=== PATIENT | female | born 1935 | race Two or more races ===

== ENCOUNTER 2019-06-05 23:11 | Inpatient (IN) | payer MEDICAID, OTHER ==
[~2019-06-05] VITALS: Ht 157.5 cm; Wt 53.1 kg
[2019-06-05] MEDS ORDERED: ACETAMINOPHEN 500 MG TAB PO ONE (23:30)
[2019-06-05] MEDS ORDERED: ACETAMINOPHEN 325 MG TAB PO ONE ×2 (23:30)
[2019-06-05 23:47] LABS: Hematocrit 32.8 % (36.0-46.0); Hemoglobin 10.8 g/dL (12.2-16.2); Mean Corpuscular Hemoglobin 30.2 pg (28.0-32.0); Mean Corpuscular Hgb Conc. 33.1 g/dL (32.0-36.0); Mean Corpuscular Volume 91.2 fL (80.0-100.0); Platelet Count (auto) 147 10^3/uL (140-450); Red Blood Cells 3.59 10^6/uL (4.0-5.20)
[2019-06-05 23:55] LABS: Basophils % (manual) 0 (0.0-2.0); Blast Cells 0; Myelocytes % 0; Promyelocytes % 0; Reactive Lymphocytes 0
[2019-06-06] VITALS (8 sets, daily range): BP systolic 88–123; BP diastolic 31–92
[2019-06-06 00:05] LABS: Albumin 2.7 g/dL (3.4-5.0); Anion Gap 11 (5-15); BUN/Creatinine Ratio 12.3; Blood Urea Nitrogen 18 mg/dL (7-18); Calcium 8.5 mg/dL (8.5-10.1); Carbon Dioxide 20 mmol/L (21-32); Chloride 108 mmol/L (98-107); GFR African American 44 mL/min; GFR Non-African American 36 mL/min; Glucose 146 mg/dL (74-106); Potassium 3.3 mmol/L (3.5-5.1); Sodium 139 mmol/L (136-145)
[2019-06-06 00:08] LABS: Urine Amorphous Crystal FEW /hpf (None Seen); Urine Bacteria MOD /hpf (None Seen); Urine Blood 1+ /uL (Negative); Urine Mucus FEW (None Seen); Urine Specific Gravity 1.014 (1.001-1.035); Urine WBC 51 /hpf (0 - 5); Urine WBC Clumps PRESENT /hpf (None Seen)
[2019-06-06 00:14] LABS: Alanine Aminotransferase 23 U/L (13-56); Alkaline Phosphatase 76 U/L (45-117); Aspartate Aminotransferase 18 U/L (15-37); Bilirubin, Total 0.4 mg/dL (0.2-1.0); Total Protein 7.2 g/dL (6.4-8.2)
[2019-06-06] MEDS ORDERED: SODIUM CHLORIDE 0.9% 1,000 ML IV ONE (00:45)
[2019-06-06 01:55] LABS: Band Neutrophils % (manual) 12; Eosinophils % (manual) 1 (0-7); Lymphocytes % (manual) 6 (10.0-50.0); Metamyelocytes % 2; Monocytes % (manual) 11 (0-12)
[2019-06-06] MEDS ORDERED: levoFLOXacin 750MG 150 ML IV ONE (02:30)
[2019-06-06] MEDS ORDERED: SODIUM CHLORIDE 0.9% 1,000 ML IV SCH (02:38)
[2019-06-06] MEDS ORDERED: POTASSIUM CHL 20 Meq TABLET PO ONE ×2 (02:45→05:03)
[2019-06-06] MEDS ORDERED: ONDANSETRON HCL 4 MG/2 ML VIAL IV PRN (02:45)
[2019-06-06] MEDS ORDERED: TEMAZEPAM 15 MG CAP PO PRN (02:45)
[2019-06-06 03:09] LABS: Lactic Acid w/Reflex 3.6 mmol/L (0.4-2.0); Magnesium 1.8 mg/dL (1.6-2.6)
[2019-06-06 03:18] LABS: CRP High Sensitivity 8.1 mg/dL (< 0.3)
--- NOTE | 2019-06-06 03:40 | NUR ---
Telemetry admit from [facility] admitted to Telemetry unit. Patient oriented to SADIE MILNER, primary RN, unit, room, bed, and unit policies regarding patient care and visiting hours. Patient now on continuous telemetry monitoring, tele box #1 and telemetry reading on arrival to unit is sinus rhythm, heart rate 65. Patient placed on bedside oxygen 2L NC, SPO2: 98%, patient denies shortness of breath at this time. Patient weighed by bedscale and encouraged to call as needed. All questions and concerns addressed, patient verbalized understanding. No signs/symptoms of distress noted or verbalized at this time. Bed is locked in lowest position, side rails x 2 are up, call light is within reach, and bed alarm is on.
--- NOTE | 2019-06-06 03:50 | NUR ---
Next of Kin Patient is alert and oriented x3. Patient reoriented to person, place, time, and situation, will reorient patient as needed and throughout the shift. Patient states that she wants her daughter, Sariah Buitrago to be her next of kin but patient does not recall daughter's phone number at this time. This RN was unable to find contact information in medical chart or hard chart.
--- NOTE | 2019-06-06 04:00 | NUR ---
Home Medications Reconciled and collected home medications. Medications were placed in patient's home medication envelope and were placed in the [facility] room, per covid-19 protocol. A copy of home medications envelope given to patient and placed in hard chart.
[2019-06-06] MEDS ORDERED: ALEN1TAB32 PO (04:38)
[2019-06-06] MEDS ORDERED: CALCTAB25 PO (04:38)
[2019-06-06] MEDS ORDERED: FURO20TA3 PO (04:38)
[2019-06-06] MEDS ORDERED: LABE100T4 PO (04:38)
[2019-06-06] MEDS ORDERED: AMLO5TAB15 PO (04:38)
[2019-06-06] MEDS ORDERED: [UNRECOGNIZED DRUG - CODE] PO (04:38)
[2019-06-06] MEDS ORDERED: ACET-1156 PO (04:38)
[2019-06-06] MEDS ORDERED: POTASSIUM CHL 20MEQ/100ML 0 ML IV ONE (05:01)
--- NOTE | 2019-06-06 05:40 | NUR ---
EKG Performed EKG performed and placed in hard chart.
[2019-06-06] MEDS ORDERED: ALBUTEROL SULF HFA 90MCG INH 200DOSE IN SCH (06:00)
--- NOTE | 2019-06-06 06:45 | NUR ---
Respiratory note: PT ASSESSED FOR MDI TX. HR 65, RR 18, POX 99% ON 2L NC, BS ARE CLEAR. NO SOB OR DISTRESS NOTED AT THIS TIME. PT STATES SHE DOES NOT TAKE MDI TX AT HOME AND DOESN'T NEED THEM. WILL CONTINUE TO MONITOR PT.
--- NOTE | 2019-06-06 07:30 | NUR ---
Opening Shift Note Assumed care of patient, awake and alert. No S/S of distress/SOB or pain. Bed in lowest and locked position with side rails up x2 and call light in reach. Instructed on POC and to call for assist PRN, will continue to monitor for changes Q1hr and PRN.
[2019-06-06] MEDS: PANTOPRAZOLE 40 MG TAB PO SCH (10:00)
[2019-06-06] MEDS: ENOXAPARIN SOD 30 MG/0.3 ML SYRINGE SC SCH (10:00)
[2019-06-06] MEDS: CHOLECALCIFEROL (VITD3) 1,000IU=25mCg TAB PO SCH (10:00)
[2019-06-06] MEDS: ZINC SULFATE 220mg CAP or TAB PO SCH (10:08)
[2019-06-06] MEDS: cefTRIAXone 1GM/50ML D5W 50 ML IV SCH (10:08)
[2019-06-06] MEDS: ACETAMINOPHEN 325 MG TAB PO PRN (10:08)
[2019-06-06] MEDS: AZITHROMYCIN 500MG/ 250ML 250 ML IV SCH (10:38)
[2019-06-06] MEDS ORDERED: ASCORBIC ACID 500 MG TAB PO ONE (11:30)
--- NOTE | 2019-06-06 12:00 | NUR ---
RECEIVED CALL. PATIENT COVID-19 TEST IS POSITIVE.
--- NOTE | 2019-06-06 12:30 | NUR ---
PATIENT TRANSFERRED TO ROOM 234 VIA WHEEL CHAIR. PATIENT ASSISTED BY STAFF AND PATIENT TRANSFERRED WITH ALL PERSONAL BELONGINGS. NO DISTRESS OR SOB AT THIS TIME.
--- NOTE | 2019-06-06 12:55 | NUR ---
RECEIVED CALL FROM [facility]. PER CARLOS BROWN, THE PATIENTS BLOOD CULTURES ARE POSITIVE WITH GRAM POSITIVE RODS.
--- NOTE | 2019-06-06 13:00 | NUR ---
PAGED DR. RODRIGUEZ. AWAITING CALL BACK.
--- NOTE | 2019-06-06 13:59 | NUR ---
Received Social Service Referral for pt that is listed as not having current insurance. Pt does have medi-donald. The medi-donald cards were brought to the ER when pt was brought in. Spoke with Elmo Acevedo who confirmed pt does have medi-donald. Pt lives with family and her daughter is her caregiver. There is also a grandson, a cousin, daughter and the daughter's . Pt normally is able to walk without any equipment. The daughter helps the pt with ADL's. The family states that pt will go home on discharge. Addendum: 06/06/19 at 1413 by DEEDEE ANDERSON Amended: Links added.
--- NOTE | 2019-06-06 14:45 | NUR ---
PAGED DR. RODRIGUEZ. AWAITING CALL BACK.
--- NOTE | 2019-06-06 14:55 | NUR ---
RECEIVED CALL BACK FROM DR. RODRIGUEZ. RN UPDATED DR. RODRIGUEZ ON THE PATIENTS BLOOD CULTURE AND COVID-19 RESULTS. MD AWARE AND NO NEW ORDERS RECEIVED AT THIS TIME.
--- NOTE | 2019-06-06 19:30 | NUR ---
Opening Shift Note Assumed care of patient, awake and alert x4. Patient denies pain or shortness of breath at this time. Instructed on plan of care and to call for assistance as needed, patient verbalized understanding. Incentive spirometer noted at the bedside. Educated patient on how and how often to use the incentive spirometer, patient verbalized understanding and returned demonstration, reinforcement on education needed. Patient was able to raise marker to 500ml, patient tolerated well. Bed is locked in lowest position, side rails x 2 are up, call light is within reach, and bed alarm is on.
[2019-06-06] MEDS: ASCORBIC ACID 500 MG TAB PO SCH (21:20)
[2019-06-07] VITALS: BP 114/49
[2019-06-07 04:20] VITALS: BP 101/52
--- NOTE | 2019-06-07 04:30 | NUR ---
Blood Draw Blood drawn as ordered by . Tubes sent to lab via bullet.
[2019-06-07 04:52] LABS: Mean Corpuscular Hemoglobin 30.6 pg (28.0-32.0); Mean Corpuscular Hgb Conc. 33.7 g/dL (32.0-36.0); Red Cell Distribution Width 14.9 % (11.8-14.3)
[2019-06-07 04:56] LABS: Hematocrit 28.3 % (36.0-46.0); Hemoglobin 9.5 g/dL (12.2-16.2); Mean Corpuscular Volume 90.8 fL (80.0-100.0); Platelet Count (auto) 91 10^3/uL (140-450); Red Blood Cells 3.12 10^6/uL (4.0-5.20)
[2019-06-07 05:18] LABS: Albumin 2.2 g/dL (3.4-5.0); Calcium 7.9 mg/dL (8.5-10.1); Potassium 3.7 mmol/L (3.5-5.1)
[2019-06-07 05:21] LABS: BUN/Creatinine Ratio 13.6; Bilirubin, Total 0.4 mg/dL (0.2-1.0); Total Protein 6.2 g/dL (6.4-8.2); White Blood Cell 1.9 10^3/uL (4.4-10.8)
--- NOTE | 2019-06-07 05:21 | NUR ---
Received Call From Lab Re: Critical Lab Value Received call from lab regarding critical lab value: WBC: 1.9. Will notify hospitalist.
[2019-06-07 05:22] LABS: Basophils % (manual) 0 (0.0-2.0); Blast Cells 0; Myelocytes % 0; Promyelocytes % 0; Reactive Lymphocytes 0
[2019-06-07] MEDS: ACETAMINOPHEN 325 MG TAB PO PRN (05:24)
--- NOTE | 2019-06-07 05:57 | NUR ---
Hospitalist Paged RE: Critical Lab Value Paged hospitalist regarding critical lab value: WBC 1.9. Awaiting call back.
[2019-06-07 05:58] LABS: Band Neutrophils % (manual) 11; Eosinophils % (manual) 2 (0-7); Lymphocytes % (manual) 41 (10.0-50.0); Metamyelocytes % 1; Monocytes % (manual) 34 (0-12)
--- NOTE | 2019-06-07 07:15 | NUR ---
Closing Shift Note Endorsed patient care to Jada LEBRON. Jada LEBRON made aware of patient's critical lab value: WBC 1.9 and that hospitalist was paged but has not returned the call.
--- NOTE | 2019-06-07 07:30 | NUR ---
Opening Shift Note Assumed care of patient, awake and alert. No S/S of distress/SOB or pain. Instructed on POC and to call for assist PRN, will continue to monitor for changes Q1hr and PRN. Fall precautions in place per safety protocol.
[2019-06-07 08:00] VITALS: BP 110/46
[2019-06-07] MEDS: PANTOPRAZOLE 40 MG TAB PO SCH (09:46)
[2019-06-07] MEDS: cefTRIAXone 1GM/50ML D5W 50 ML IV SCH (09:46)
[2019-06-07] MEDS: ASCORBIC ACID 500 MG TAB PO SCH ×2 (09:47→20:49)
[2019-06-07] MEDS: ZINC SULFATE 220mg CAP or TAB PO SCH (09:49)
[2019-06-07] MEDS: CHOLECALCIFEROL (VITD3) 1,000IU=25mCg TAB PO SCH (09:49)
[2019-06-07] MEDS: ENOXAPARIN SOD 30 MG/0.3 ML SYRINGE SC SCH (10:00)
[2019-06-07] MEDS: AZITHROMYCIN 500MG/ 250ML 250 ML IV SCH (10:41)
[2019-06-07 12:00] VITALS: BP 105/51
--- NOTE | 2019-06-07 14:00 | NUR ---
Hospitalist at bedside MD Aggarwal at bedside, aware of patient status, including low platelets and WBC. Per MD Aggarwal, he will make adjustments to medications and input new orders. Will cont to monitor patient.
--- NOTE | 2019-06-07 16:00 | NUR ---
IV insertion IV access obtained, via clean sterile technique by inserting 20 gauge catheter at right FA after 1 attempt. IV secured properly. No trauma to site. Patient tolerated well. Old IV, came off as it got tangled with patients O2 Tubing. No trauma to site noted.
[2019-06-07 17:00] VITALS: BP 123/58
--- NOTE | 2019-06-07 19:04 | NUR ---
Endorsed care to night RN Shefali. Patient resting in bed, no distress, sob or pain noted at this time.
--- NOTE | 2019-06-07 19:05 | NUR ---
Opening Shift Note Assumed care of patient, eyes closed, respirations even and unlabored, appears asleep. No S/S of distress/SOB or pain. Bed in lowest locked position, side rails up x2, call light within reach, bed alarm on. court recording monitor on patient with all leads and connections verified in the correct position. Instructed on POC and to call for assist PRN, will continue to monitor for changes Q1hr and PRN. Addendum: 06/07/19 at 2126 by LENORE SANABRIA RN RN ADDITION: COVID [address] Will use correct PPE throughout shift.
[2019-06-07 20:00] VITALS: BP 106/37
--- NOTE | 2019-06-07 21:00 | NUR ---
Temperature 99.2 Fahrenheit orally. Temperature of room lowered and blankets removed. Patient denies chills and other s/s fever. Will continue to monitor.
[2019-06-08] VITALS: BP 114/48
--- NOTE | 2019-06-08 06:30 | NUR ---
Unable to complete ordered morning lab draw, lab staff made aware and verbalized understanding. Will continue care.
--- NOTE | 2019-06-08 07:30 | NUR ---
Closing Note Patient lying in bed, eyes closed, respirations even and unlabored, appears asleep. No s/s of distress. Bed in lowest locked position, side rails up x2, call light within reach, bed alarm on. Care endorsed to dayshift RN.
--- NOTE | 2019-06-08 07:31 | NUR ---
Opening Shift Note Assumed care of patient, awake and alert. No S/S of distress/SOB or pain on room air. Instructed on POC and to call for assist PRN, will continue to monitor for changes Q1hr and PRN. Bed in low and locked position, rails up x2, no-slip socks on.
[2019-06-08 07:39] LABS: Hematocrit 29.6 % (36.0-46.0); Mean Corpuscular Hemoglobin 30.6 pg (28.0-32.0); Mean Corpuscular Hgb Conc. 33.8 g/dL (32.0-36.0); Mean Corpuscular Volume 90.4 fL (80.0-100.0); Platelet Count (auto) 111 10^3/uL (140-450); Red Blood Cells 3.27 10^6/uL (4.0-5.20); Red Cell Distribution Width 14.9 % (11.8-14.3); White Blood Cell 2.8 10^3/uL (4.4-10.8)
[2019-06-08 07:41] LABS: Basophils % (manual) 0 (0.0-2.0); Blast Cells 0; Promyelocytes % 0; Reactive Lymphocytes 0
[2019-06-08 07:55] LABS: BUN/Creatinine Ratio 12.2; Calcium 8.5 mg/dL (8.5-10.1); Potassium 3.8 mmol/L (3.5-5.1)
[2019-06-08] MEDS: ZINC SULFATE 220mg CAP or TAB PO SCH (08:55)
[2019-06-08] MEDS: cefTRIAXone 1GM/50ML D5W 50 ML IV SCH (08:55)
[2019-06-08] MEDS: PANTOPRAZOLE 40 MG TAB PO SCH (08:56)
[2019-06-08] MEDS: CHOLECALCIFEROL (VITD3) 1,000IU=25mCg TAB PO SCH (08:56)
[2019-06-08] MEDS: ASCORBIC ACID 500 MG TAB PO SCH ×2 (08:56→22:08)
[2019-06-08 09:00] VITALS: BP 120/53
[2019-06-08 09:04] LABS: Eosinophils % (manual) 6 (0-7); Lymphocytes % (manual) 31 (10.0-50.0); Metamyelocytes % 1; Monocytes % (manual) 25 (0-12); Myelocytes % 1
[2019-06-08 09:05] LABS: Band Neutrophils % (manual) 5
[2019-06-08] MEDS: AZITHROMYCIN 500MG/ 250ML 250 ML IV SCH (09:49)
--- NOTE | 2019-06-08 11:00 | NUR ---
POSITIVE BLOOD CULTURES IN BOTH BOTTLES, E.COLI. MD NOTIFIED, PATIENT ALREADY ON CEFTRIAXONE, NO NEW ORDERS AT THIS TIME.
[2019-06-08 12:30] VITALS: BP 128/59
--- NOTE | 2019-06-08 15:20 | NUR ---
MARIN REMOVAL/ BOWEL MOVEMENT NURSE NOTICED [employer] ON [employer]ISHER AND UPON ENTERING ROOM PATIENT WAS UNABLE TO CALL FOR ASSISTANCE AND STANDING AT BEDSIDE WITH A LOOSE BOWEL MOVEMENT ON LINEN AND ON FLOOR. ENSURED PATIENT SAFETY BY AMBULATING TO BATHROOM WHILE COMPLETE LINEN CHANGE, PARTIAL SPONGE BATH PERFORMED AND PLACED A CALL FOR ROOM CLEAN INITIATED. PATIENT STATED SHE LOST HER CALL LIGHT AND WAS UNABLE TO MAKE IT. PATIENT HAS STATED 3 TOTAL BOWEL MOVEMENTS OF SAME NATURE TODAY, THAT SHE BARELY MADE IT. PATIENT ASSESSED TO NO LONGER MEET CRITERIA FOR MARIN CATHETER AND IT WAS DISCONTINUED WITH CATHETER INTACT, PATIENT TOLERATED IT WELL. PATIENT SATURATING WELL ON ROOM AIR, 95%, REMOVED NASAL CANNULA AT THIS TIME. PROVIDED PATIENT A BEDSIDE COMMODE AND INSTRUCTED TO CALL FOR ASSISTANCE [employer] FINISHER LIGHT OR ON BED OR TELEPHONE IF UNABLE TO REACH CALL LIGHT. PATIENT VERBALIZES UNDERSTANDING. NOTIFIED DR BLAIR OF PATIENT [place] AND NO NEW ORDERS ADDED. WILL CONTINUE TO MONITOR FOR CHANGES.
[2019-06-08 16:00] VITALS: BP 120/69
--- NOTE | 2019-06-08 16:24 | NUR ---
FAMILY CALL PASSWORD PROVIDED, UPDATED ON PLAN OF CARE, GRANDDAUGHTER ASKED IF MD CAN CALL FAMILY DAILY WITH AN UPDATE ON PATIENT CONDITION, WILL PASS ALONG MESSAGE TO ROUNDING MD.
--- NOTE | 2019-06-08 18:36 | NUR ---
DR BLARI AT BEDSIDE NO NEW ORDERS AT THIS TIME, WILL CONTINUE TO MONITOR.
--- NOTE | 2019-06-08 19:15 | NUR ---
Opening Shift Note Assumed care of patient, eyes closed, respirations even and unlabored, appears asleep. No S/S of distress/SOB or pain. Bed in lowest locked position, side rails up x2, call light within reach. monitor technician on patient with all leads and connections verified in the correct position. Instructed on POC and to call for assist PRN, will continue to monitor for changes Q1hr and PRN. COVID [address] Will use correct PPE throughout shift.
[2019-06-08 20:00] VITALS: BP 123/60
--- NOTE | 2019-06-08 22:10 | NUR ---
Assisted patient to bathroom, patient reports one void and one small bowel movement. Patient assisted back to bed without incident. Will continue care.
[2019-06-09] VITALS: BP 105/48
[2019-06-09 04:00] VITALS: BP 97/70
--- NOTE | 2019-06-09 06:00 | NUR ---
Unable to obtain ordered labs, lab staff made aware and verbalized understanding. Will continue care.
--- NOTE | 2019-06-09 06:29 | NUR ---
Closing Note Patient lying in bed, eyes closed, respirations even and unlabored, appears asleep. No s/s of distress. Bed in lowest locked position, side rails up x2, call light within reach. Will endorse care to dayshift RN.
--- NOTE | 2019-06-09 07:45 | NUR ---
Opening Shift Note Assumed care of patient, awake and alert. No S/S of distress/SOB or pain on room air. Labs drawn at this time after 2 attempts. Instructed on POC and to call for assist PRN, will continue to monitor for changes Q1hr and PRN. Bed in low and locked position, rails up x2, no-slip socks on.
[2019-06-09 08:30] VITALS: BP 117/45
[2019-06-09 08:37] LABS: Hematocrit 29.7 % (36.0-46.0); Hemoglobin 9.9 g/dL (12.2-16.2); Mean Corpuscular Hemoglobin 30.4 pg (28.0-32.0); Mean Corpuscular Hgb Conc. 33.4 g/dL (32.0-36.0); Platelet Count (auto) 122 10^3/uL (140-450); Red Blood Cells 3.26 10^6/uL (4.0-5.20); Red Cell Distribution Width 14.8 % (11.8-14.3); White Blood Cell 4.4 10^3/uL (4.4-10.8)
[2019-06-09 08:39] LABS: Basophils % (manual) 0 (0.0-2.0); Blast Cells 0; Promyelocytes % 0; Reactive Lymphocytes 0
[2019-06-09 08:53] LABS: Albumin 2.4 g/dL (3.4-5.0); Calcium 8.4 mg/dL (8.5-10.1); Potassium 3.6 mmol/L (3.5-5.1)
[2019-06-09 08:58] LABS: BUN/Creatinine Ratio 9.8; Bilirubin, Total 0.3 mg/dL (0.2-1.0); Total Protein 6.7 g/dL (6.4-8.2)
[2019-06-09 09:21] LABS: Lymphocytes % (manual) 15 (10.0-50.0); Metamyelocytes % 2; Monocytes % (manual) 18 (0-12); Myelocytes % 1
[2019-06-09 09:22] LABS: Band Neutrophils % (manual) 3
[2019-06-09 09:23] LABS: Eosinophils % (manual) 3 (0-7)
[2019-06-09] MEDS: cefTRIAXone 1GM/50ML D5W 50 ML IV SCH (10:11)
[2019-06-09] MEDS: CHOLECALCIFEROL (VITD3) 1,000IU=25mCg TAB PO SCH (10:12)
[2019-06-09] MEDS: ASCORBIC ACID 500 MG TAB PO SCH ×2 (10:12→21:39)
[2019-06-09] MEDS: ZINC SULFATE 220mg CAP or TAB PO SCH (10:12)
[2019-06-09] MEDS: PANTOPRAZOLE 40 MG TAB PO SCH (10:12)
[2019-06-09 12:30] VITALS: BP 118/54
[2019-06-09] MEDS: AZITHROMYCIN 500MG/ 250ML 250 ML IV SCH (12:55)
[2019-06-09] MEDS: ACETAMINOPHEN 325 MG TAB PO PRN (14:58)
--- NOTE | 2019-06-09 16:20 | NUR ---
IV insertion/IV removal IV access obtained, via clean sterile technique by inserting 22 gauge catheter at left forearm after 1 attempt. IV secured properly. No trauma to site. Patient tolerated well. IV DC'd to right forearm with clean sterile technique, catheter fully intact due to tenderness above the site when palpating, not on flushing. Pressure dressing applied to site and ice pack and pain medication provided. Patient tolerated well.
[2019-06-09 16:30] VITALS: BP 114/89
--- NOTE | 2019-06-09 18:30 | NUR ---
DR BLAIR AT BEDSIDE NEW ORDERS TO BE ADDED BY .
--- NOTE | 2019-06-09 18:50 | NUR ---
DR BLAIR CALL FAMILY SPOKE TO NEHEMIAH, PATIENTS GRANDDAUGHTER, PASSWORD VERIFIED AND ALL QUESTIONS ANSWERED, UPDATED ON PLAN OF CARE.
--- NOTE | 2019-06-09 19:30 | NUR ---
Opening Shift Note Assumed care of patient, eyes closed, respirations even and unlabored, appears asleep. No S/S of distress/SOB or pain. Bed in lowest locked position, side rails up x2, call light within reach. library monitor on patient with all leads and connections verified in the correct position. Instructed on POC and to call for assist PRN, will continue to monitor for changes Q1hr and PRN. COVID [address] Will use correct PPE throughout shift.
[2019-06-09 20:00] VITALS: BP 112/55
--- NOTE | 2019-06-09 20:00 | NUR ---
Respiratory note: ASSESSED PT , NO DISTRESS NOTED. HR 70, RR 16, SPO2 95% ON ROOM AIR.
[2019-06-09] MEDS: TROLAMINE SALICYLATE 10% TOP CREAM TOP SCH (21:39)
[2019-06-10] VITALS: BP 125/56
[2019-06-10 04:00] VITALS: BP 130/64
[2019-06-10 06:31] LABS: Basophils # (auto) 0 10 ^3/uL (0-0.2); Basophils % (auto) 0.4 % (0.0-2.0); Eosinophils # (auto) 0.2 10 ^3/uL (0-0.8); Eosinophils % (auto) 2.6 % (0.0-7.0); Hematocrit 31.3 % (36.0-46.0); Hemoglobin 10.5 g/dL (12.2-16.2); Lymphocytes # (auto) 0.9 10 ^3/uL (0.4-5.4); Lymphocytes % (auto) 13.8 % (10.0-50.0); Mean Corpuscular Hemoglobin 30.3 pg (28.0-32.0); Mean Corpuscular Hgb Conc. 33.6 g/dL (32.0-36.0); Mean Corpuscular Volume 90.2 fL (80.0-100.0); Monocytes # (auto) 1.1 10 ^3/uL (0-1.3); Monocytes % (auto) 17.4 % (0.0-12.0); Neutrophils # (auto) 4.2 10 ^3/uL (1.6-8.6); Neutrophils % (auto) 65.8 % (37.0-80.0); Platelet Count (auto) 130 10^3/uL (140-450); Red Blood Cells 3.48 10^6/uL (4.0-5.20); Red Cell Distribution Width 14.7 % (11.8-14.3); White Blood Cell 6.4 10^3/uL (4.4-10.8)
[2019-06-10 07:09] LABS: Albumin 2.7 g/dL (3.4-5.0); Calcium 8.7 mg/dL (8.5-10.1); Potassium 3.8 mmol/L (3.5-5.1)
[2019-06-10 07:12] LABS: BUN/Creatinine Ratio 11.5; Bilirubin, Total 0.2 mg/dL (0.2-1.0); Total Protein 7.2 g/dL (6.4-8.2)
--- NOTE | 2019-06-10 07:30 | NUR ---
Respiratory note: PT WAS AWAKE, AND ALERT. NO RESPIRATORY DISTRESS NOTED. SPO2 93% ON RA, HR 68, RR 18, BS CLEAR/DIMINISHED BILATERALLY. NO FURTHER RESPIRATORY INTERVENTION INDICATED. WILL CONTINUE TO MONITOR PT.
--- NOTE | 2019-06-10 08:00 | NUR ---
OPENING SHIFT NOTE ASSUMED CARE OF PATIENT AWAKE AND ALERT. NO S/S OF DISTRESS NOTED OR COMPLAINTS OF PAIN. PATIENT IS ON ROOM AIR WITH AN O2 SATURATION OF 95% AND AFEBRILE. APPROPRIATE RESPIRATORY ISOLATION PROCEDURES MAINTAINED. UPDATED PATIENT ON POC FOR THE DAY AND ALL QUESTIONS ANSWERED. BED IS IN LOWEST, LOCKED POSITION WITH SIDE RAILS UP X2 AND CALL LIGHT WITHIN REACH. WILL CONTINUE TO MONITOR Q1H AND PRN.
[2019-06-10] MEDS: ASCORBIC ACID 500 MG TAB PO SCH (09:56)
[2019-06-10] MEDS: PANTOPRAZOLE 40 MG TAB PO SCH (09:56)
[2019-06-10] MEDS: AZITHROMYCIN 500MG/ 250ML 250 ML IV SCH (09:56)
[2019-06-10] MEDS: ZINC SULFATE 220mg CAP or TAB PO SCH (09:56)
[2019-06-10] MEDS: cefTRIAXone 1GM/50ML D5W 50 ML IV SCH (09:56)
[2019-06-10] MEDS: CHOLECALCIFEROL (VITD3) 1,000IU=25mCg TAB PO SCH (09:57)
[2019-06-10] MEDS: TROLAMINE SALICYLATE 10% TOP CREAM TOP SCH (09:57)
--- NOTE | 2019-06-10 12:00 | NUR ---
AT BEDSIDE DR RODRIGUEZ AT BEDSIDE
--- NOTE | 2019-06-10 14:40 | NUR ---
Discharge instructions given as ordered. Encourage to follow up with PMD as instructed. All questions and concerns addressed. Patient verbalized understanding. Home medications held in Pharmacy returned to patient. IV removed with catheter intact, pressure dressing applied. Telemetry unit returned to ICU. Patient taken to vehicle via wheelchair with all personal belongings, accompanied by staff member, security and EVS.. No distress noted at time of departure.
--- NOTE | 2019-06-10 16:52 | NUR ---
re-assessment Per consult family has questions about living situation. Per Eloy patients grand son he stated the family wanted to know about how long patient needs to be quarantined and if her daughter is positive can they share a room together. I informed Leoy to speak with patients doctor regarding those questions. Eloy verbalized understanding. Addendum: 06/10/19 at 1654 by Diana Jiang Amended: Links added.
== END 2019-06-10 14:40 | disposition home or self-care (01) | DRG 720 ==
LOC: EDBD 23:11 → ER 23:16 → TELE 23:17 → TELE-EAST 06-06 03:35
PROVIDERS: ADMIT Nurse Practitioner; ATTEND Internal Medicine
DX: A41.51 Sepsis due to Escherichia coli [E. coli] (principal); U07.1 COVID-19; J96.00 Acute respiratory failure, unspecified whether with hypoxia or hypercapnia; N17.0 Acute kidney failure with tubular necrosis; E44.0 Moderate protein-calorie malnutrition; N18.3 Chronic kidney disease, stage 3 (moderate); D69.6 Thrombocytopenia, unspecified; J12.89 Other viral pneumonia; N39.0 Urinary tract infection, site not specified; E87.6 Hypokalemia; R19.7 Diarrhea, unspecified; Z68.21 Body mass index [BMI] 21.0-21.9, adult; D72.819 Decreased white blood cell count, unspecified; I13.10 Hypertensive heart and chronic kidney disease without heart failure, with stage 1 through stage 4 chronic kidney disease, or unspecified chronic kidney disease
CPT/HCPCS: 36415; 71045; 80048; 80053; 81001; 82728; 83605; 83615; 83735; 83880; 84443; 84484; 85007; 85025; 85027; 85379; 86141; 87040; 87070; 87077; 87086; 87088; 87186; 87804; 87880; 96360; G0378; J0696; J1956; J3480